=== PATIENT | male | born 1995 | race Two or more races ===

== ENCOUNTER 2018-11-06 18:18 | Emergency (ER) | payer MEDICAID ==
[~2018-11-06] VITALS: Ht 172.7 cm; Wt 95.3 kg
[2018-11-06 18:24] VITALS: BP 140/92
== END 2018-11-06 21:24 | disposition left against medical advice (07) ==
LOC: ER 18:23
DX: M25.531 Pain in right wrist (principal); Z53.21 Procedure and treatment not carried out due to patient leaving prior to being seen by health care provider
CPT/HCPCS: 73110